=== PATIENT | male | born 1985 | race American Indian/Alaskan Native ===

== ENCOUNTER 2016-11-01 02:08 | Emergency (ER) | payer SELFPAY ==
[2016-11-01 02:34] LABS: Basophils % (Auto) 0.9 % (0.0-1.8); Eosinophils % (Auto) 1.2 % (0.0-4.3); Hemoglobin 12.2 gm/dl (11.8-15.2); Mean Corpuscular HGB Conc 32 % (32-34); Mean Corpuscular Hemoglobin 29 pg (28-32); Mean Corpuscular Volume 89 fl (84-94); Red Blood Count 4.26 M/mm3 (3.65-5.03); Red Cell Distribution Width 13.7 % (13.2-15.2); White Blood Count 5.2 K/mm3 (4.5-11.0)
[2016-11-01 02:45] LABS: Platelet Count 103 K/mm3 (140-440)
[2016-11-01 02:58] LABS: Alanine Aminotransferase 31 units/L (7-56); Albumin 4.2 g/dL (3.9-5); Albumin/Globulin Ratio 1.1 %; Alkaline Phosphatase 94 units/L (35-129); BUN/Creatinine Ratio 16.25; Bilirubin,Total 0.3 mg/dL (0.1-1.2); Blood Urea Nitrogen 13 mg/dL (9-20); Carbon Dioxide 25 mmol/L (22-30); Chloride 101.2 mmol/L (98-107); Glucose 93 mg/dL (75-100); Lipase 22 units/L (13-60); Potassium 3.9 mmol/L (3.6-5.0); Sodium 139 mmol/L (137-145)
[2016-11-01 03:13] LABS: Anion Gap 17 mmol/L
[2016-11-01 08:18] LABS: Bacteria,Urine 1+ /HPF (Negative); Bilirubin,Urine NEG (Negative); Blood,Urine NEG (Negative); Ketones,Urine NEG (Negative); Leukocyte Esterase,Urine NEG (Negative); Mucus,Urine 3+ /HPF; Nitrite,Urine NEG (Negative); Protein,Urine <15 mg/dL mg/dL (Negative); Urobilinogen,Urine < 2.0 mg/dL (<2.0)
--- NOTE | 2016-11-01 08:50 | Emergency Department Report ---
HPI - General Chief Complaint: GI Bleed Time Seen by Provider: 11/01/16 08:44 - HPI HPI: Chief complaint: Sore throat and rectal bleeding HPI: Patient complains of constipation for 2 weeks and having to strain and noticed blood when he wiped after a bowel movement last night. Patient states he's had a sore throat for 3 days and felt like he has had a fever. Patient also complains of a right cervical lymph node. Mode of arrival: [private car] Source: [Patient] Began: See above Duration: See above Context: Patient is homosexual but states he has not had intercourse in quite some time. Patient has history of syphilis in the past but has not had intercourse since he was treated for this. Patient states he has been checked for HIV and it was negative. Patient denies being around anyone with strep pharyngitis Quality: Sore throat and rectal pain Severity: 7 out of 10 Improved with: Bleeding worse with defecation Worsened with: Sore throat worse with swallowing Associated signs and symptoms: No nausea vomiting or diarrhea. ED Past Medical Hx - Past Medical History Previous Medical History?: No - Surgical History Past Surgical History?: No - Social History Smoking Status: Never Smoker Substance Use Type: Marijuana - Medications Home Medications: Home Medications Medication Instructions Recorded Confirmed Last Taken Type Amoxicillin [Trimox CAP] 500 mg PO Q8H #30 capsule 11/01/16 Unknown Rx traMADol [Ultram 50 MG tab] 50 mg PO Q6HR PRN #14 tablet 11/01/16 Unknown Rx ED Review of Systems ROS: Stated complaint: CONSTIPATION/BLOOD IN STOOL/THROAT PAIN Other details as noted in HPI ROS Constitutional: No fever ENT: See HPI Cardiovascular: No chest pain Respiratory: No sob or cough GI: No nausea vomiting or diarrhea : No dysuria frequency or urgency, Skin: No rash Neuro: No focal weakness or numbness Psych: No depression Juan Manuel/lymph: No edema Physical Exam - Physical Exam Vital Signs: Vital Signs 11/01/16 11/01/16 11/01/16 02:12 07:47 07:48 Temperature 98.4 F Pulse Rate 99 H Respiratory 20 Rate Blood Pressure 128/81 138/101 O2 Sat by Pulse 100 100 100 Oximetry Physical Exam: GENERAL: The patient is well-developed well-nourished . HEENT: Normocephalic. Atraumatic. Extraocular motions are intact. Patient has moist mucous membranes. Tonsils erythematous and slightly enlarged but no exudate. There is a shotty right cervical lymph node that is slightly tender and mobile with no fluctuance. NECK: Supple. No meningitic signs are noted. CHEST/LUNGS: Clear to auscultation. There is no respiratory distress noted. HEART/CARDIOVASCULAR: Regular. There is no tachycardia. There is no gallop rub or murmur. ABDOMEN: Abdomen is soft, nontender. Patient has normal bowel sounds. There is no abdominal distention. Rectal exam possible internal hemorrhoids palpated , no stool minimally guaiac-positive. No bright red blood SKIN: There is no rash. There is no edema. There is no diaphoresis. NEURO: The patient is awake, alert, and oriented. The patient is cooperative. The patient has no focal neurologic deficits. The patient has normal speech. MUSCULOSKELETAL: There is no tenderness or deformity. There is no limitation range of motion. There is no evidence of acute injury. ED Course Vital Signs 11/01/16 11/01/16 11/01/16 02:12 07:47 07:48 Temperature 98.4 F Pulse Rate 99 H Respiratory 20 Rate Blood Pressure 128/81 138/101 O2 Sat by Pulse 100 100 100 Oximetry ED Medical Decision Making - Lab Data Result diagrams: 11/01/16 02:24 11/01/16 02:24 Strep screen urine negative Critical care attestation.: If time is entered above; I have spent that time in minutes in the direct care of this critically ill patient, excluding procedure time. ED Disposition Clinical Impression: Rectal bleeding Pharyngitis Qualifiers: Pharyngitis/tonsillitis etiology: unspecified etiology Qualified Code(s): J02.9 - Acute pharyngitis, unspecified Constipation Qualifiers: Constipation type: unspecified constipation type Qualified Code(s): K59.00 - Constipation, unspecified Disposition: DISCHARGED TO HOME OR SELFCARE Is pt being admited?: No Does the pt Need Aspirin: No Condition: Stable Instructions: Constipation (ED), High Fiber Diet (ED), Pharyngitis (ED), Rectal Bleeding (ED) Additional Instructions: Take MiraLAX [id number] Prescriptions: Amoxicillin [Trimox CAP] 500 mg PO Q8H #30 capsule traMADol [Ultram 50 MG tab] 50 mg PO Q6HR PRN #14 tablet PRN Reason: Pain Referrals: PRIMARY CARE, [Primary Care Provider] - 3-5 Days [facility] [Provider Group] - 3-5 Days Forms: Accompanied Note Time of Disposition: 09:35
[2016-11-01 09:44] VITALS: BP 123/83
== END 2016-11-01 09:45 | disposition home or self-care (01) ==
LOC: ED 02:08
DX: K62.5 Hemorrhage of anus and rectum (principal); K59.00 Constipation, unspecified; J02.9 Acute pharyngitis, unspecified; F12.10 Cannabis abuse, uncomplicated
CPT/HCPCS: 36415; 80053; 81001; 82271; 83690; 85025; 87116; 87430; 99283